=== PATIENT | male | born 2000 | race African-American/Black ===

== ENCOUNTER 2024-05-07 19:41 | Emergency (ER) | payer SELFPAY ==
--- OUTSIDE RECORDS SUMMARY | 2024-05-07 19:44 | XMS REPORT | Continuity of Care Document ---
Author Name Unknown Address [address] [facility] [place] [id number] [facility] thconnect Address [address] [facility] [place] [address] Care Team Providers Care Pv Installer Tech Name Role Phone NIKUNJ ARVIZU Attending Clinician Unavailab maricruz RAMIREZ Attending Clinician Unavailable LIAM SPENCE Attending Clinician Unavailable JEM CROFT Attending Clinician Unavailable SAMANTHA GIBBS Attending Clinician Unavailable GILBERTO MELARA Attending Clinician Unavailable JESSY CHACON Attending Clinician Unavailable NIDA SERNA Attending Clinician UnavailESTELA Leslie Attending Clinician Unavailable GERMAN BRIGHT Attending Clinician Unavailable MEME MONTEIRO Attending Clinician Unavailab JASMINE Joaquin Attending Clinician Unavailable IQRA MARTINES Attending Clinician Unav ailable ASHLEY Admitting Clinician Unavailable ESTELA LAM Admitting Clinician Unavailable IQRA MARTINES Admitting Clinician Unav ailable Encounters Start Date/Time End Date/Time Encounter Type Admission Type Attending Clinicians Care Facility Care Department Encounter ID Source 2023-10-07 10:40:00 2023-10-07 12:17:00 Emergency ER NIKUNJ ARVIZU [facility] [id number] [facility] 2021-11-03 02:04:00 2021-11-03 02:04:00 Outpatient WADE KATZ [facility] [id number] [facility] Program 2020-11-28 10:27:00 2020-11-28 11:35:00 Emergency ER LIAM SPENCE [facility] [id number] [facility] 2020-05-22 12:29:00 2020-05-22 14:19:00 Emergency ER JEM CROFT [facility] [id number] [facility] 2019-10-26 15:12:00 2019-10-26 16:43:00 Emergency ER SAMANTHA GIBBS [facility] [id number] [facility] 2019-03-07 13:48:00 2019-03-07 17:25:00 Emergency ER GILBERTO MELARA [facility] [id number] [facility] 2019-02-09 09:18:00 2019-02-09 11:25:00 Emergency ER OSWALDO JESSY [facility] [id number] [facility] 2019-02-08 14:42:00 2019-02-08 16:07:00 Emergency ER OSWALDO JESSY [facility] [id number] [facility] 2016-01-20 10:51:00 2016-01-20 10:51:00 Outpatient NIDA OCAMPO [facility] [id number] [facility] 2016-01-08 11:20:00 2016-01-08 11:20:00 Outpatient NIDA OCAMPO [facility] [id number] [facility] 2015-05-28 15:50:00 2015-05-30 16:54:00 Inpatient ER ESTELA LAM [facility] [id number] [facility] 2015-05-13 13:31:00 2015-05-13 15:30:00 Emergency ER GERMAN BRIGHT [facility] [id number] [facility] 2013-06-19 08:22:00 2013-06-19 09:25:00 Emergency ER SAMANTHA GIBBS [facility] [id number] [facility] 2012-11-24 00:47:00 2012-11-24 04:26:00 Emergency ER MEME MONTEIRO [facility] [id number] [facility] 2012-10-24 18:47:00 2012-10-24 20:49:00 Emergency ER GERMAN BRIGHT [facility] [id number] [facility] 2004-09-16 08:05:00 2004-09-16 10:00:00 Emergency ER KARYN MURRIETAIR [facility] [id number] [facility] 2000 02:17:00 2000 11:00:00 Inpatient NB IQRA ORTIZ [facility] [id number] [facility]
[2024-05-07 20:28] LABS: SARS-CoV-2 Antigen CONTROL BLUE LINE VIS/BG OK; SARS-CoV-2 Antigen Rapid Res Negative (Negative)
--- NOTE | 2024-05-07 20:59 | EDPHYS ---
Physician Documentation [facility] Name: Hans Cruz Age: 23 yrs Sex: Male : 2000 Arrival Date: 05/07/2024 Time: 19:41 Bed IW2 Private MD: ED Physician Efrain Rocha HPI: 05/07 19:51 This 23 yrs old Black Male presents to ER via Unassigned with complaints of Flu kb Symptoms. 19:51 Pt is a 23 year old male who presents for cough, congestion, bodyaches, chills, sore kb throat, diarrhea, and generalized malaise for 2 days. Denies nausea, vomiting, abd pain. . Historical: - Allergies: 19:53 No Known Allergies; cm10 - PMHx: 19:53 None; cm10 - PSHx: 19:53 None; cm10 - Immunization history:: Adult Immunizations up to date. - Infectious Disease History:: Denies. - Social history:: Smoking status: Patient reports the use of cigarette tobacco products, denies chronic smoking, but will smoke occasionally, Reported history of juuling and/or vaping. ROS: 19:53 Constitutional: As per HPI kb Exam: 19:53 Constitutional: This is a well developed, well nourished patient who is awake, alert, kb and in no acute distress. Head/Face: Normocephalic, atraumatic. ENT: Moist Mucous membranes Cardiovascular: Regular rate Respiratory: Respirations even and unlabored. No increased work of breathing. Talking in full sentences Abdomen/GI: Soft, non-tender. No distention Skin: Warm, dry with normal turgor. Normal color. MS/ Extremity: Pulses equal, no cyanosis. Neurovascular intact. Full, normal range of motion. Neuro: Awake and alert, GCS 15, oriented to person, place, time, and situation. Vital Signs: 19:52 BP 138 / 94; Pulse 81; Resp 15; Temp 98.2(TE); Pulse Ox 99% on R/A; Weight 72.57 kg; cm10 Height 5 ft. 11 in. ; Pain 7/10; 19:52 Body Mass Index 22.32 (72.57 kg, 180.34 cm) cm10 19:52 Pain Scale: Adult cm10 MDM: 19:48 Medical Screening Exam initiated kb 19:53 Data reviewed: vital signs, nurses notes. Historians other than the Patient: lauren Spouse/Significant Other: significant other. 20:57 Differential diagnosis: flu, covid, strep, uri. Counseling: I had a detailed discussion kb with the patient and/or guardian regarding the historical points, exam findings, and any diagnostic results supporting the discharge/admit diagnosis, lab results, the need for outpatient follow up, a family practitioner, to return to the emergency department if symptoms worsen or persist or if there are any questions or concerns that arise at home. 05/07 19:54 Order name: Flu; Complete Time: 20:43 kb 05/07 19:54 Order name: SARS-COV-2 Antigen Rapid; Complete Time: 20:28 kb 05/07 19:54 Order name: Strep 05/07 20:30 Order name: Throat Culture EDMS Administered Medications: No medications were administered Disposition Summary: 05/07/24 20:58 Discharge Ordered Notes: Location: Home kb Condition: Stable kb Diagnosis - Viral infection, unspecified kb Followup: kb - With: Emergency Department - When: As needed - Reason: Worsening of condition Followup: kb - With: Private Physician - When: 2 - 3 days - Reason: Recheck today's complaints, Continuance of care, Re-evaluation by your physician Discharge Instructions: - Discharge Summary Sheet kb - Viral Illness, Adult kb Forms: - Work release form kb - Medication Reconciliation Form kb - Antibiotic Education kb - Prescription Opioid Use kb - Patient Portal Instructions kb - Leadership Thank You Letter kb Addendum: 05/11/2024 10:07 Co-signature as Attending Physician, Efrain Rocha MD I reviewed the patient's care r n provided by the Advanced Practice Provider and agree with the diagnosis and treatment plan. Signatures: Dispatcher [employer] EDIL Lucia Astorga, PROGRAM MANAGEMENT ANALYST-C PROGRAM MANAGEMENT ANALYST-Ckb Efrain Rocha MD MD rn Martinez, Clarissa, RN RN cm10 Corrections: (The following items were deleted from the chart) 05/07 19:55 19:54 Influenza Screen (A \T\ B)+BA.LAB.BRZ ordered. EDIL EDMS 19:55 19:54 SARS-COV-2 Antigen Rapid+I.LAB.BRZ ordered. EDIL EDMS 19:55 19:54 Group A Streptococcus Rapid Sc+BA.LAB.BRZ ordered. EDMS EDMS
--- NOTE | 2024-05-07 20:59 | ER ---
Nurse's Notes [facility] Name: Hans Cruz Age: 23 yrs Sex: Male : 2000 Arrival Date: 05/07/2024 Time: 19:41 Bed IW2 Private MD: Diagnosis: Viral infection, unspecified Presentation: 05/07 19:52 Chief complaint: Patient states: Diarrhea, cough, sore that, body aches onset 2 days cm10 ago. Coronavirus screen: Client denies travel out of the [place] in the last 14 days. Ebola Screen: Patient denies travel to an Ebola-affected area in the 21 days before illness onset. Initial Sepsis Screen: Does the patient meet any 2 criteria? No. Patient's initial sepsis screen is negative. Does the patient have a suspected source of infection? No. Patient's initial sepsis screen is negative. Risk Assessment: Do you want to hurt yourself or someone else? Patient reports no desire to harm self or others. Onset of symptoms was May 07, 2024. 19:52 Method Of Arrival: Ambulatory cm10 19:52 Acuity: JENNIFER 4 cm10 Triage Assessment: 19:52 General: Appears in no apparent distress. comfortable, Behavior is calm, cooperative. cm10 Pain: Complains of pain in Generalized body aches. Neuro: No deficits noted. Level of Consciousness is awake, alert, obeys commands, Oriented to person, place, time, situation, Appropriate for age. 19:52 EENT: Reports pain when swallowing. cm10 19:52 Respiratory: No deficits noted. Airway is patent Respiratory effort is even, unlabored, cm10 Respiratory pattern is regular, symmetrical. Respiratory: Reports cough that is. Musculoskeletal: No deficits noted. Range of motion: intact in all extremities. Historical: - Allergies: 19:53 No Known Allergies; cm10 - PMHx: 19:53 None; cm10 - PSHx: 19:53 None; cm10 - Immunization history:: Adult Immunizations up to date. - Infectious Disease History:: Denies. - Social history:: Smoking status: Patient reports the use of cigarette tobacco products, denies chronic smoking, but will smoke occasionally, Reported history of juuling and/or vaping. Screenin:08 [facility] ED Fall Risk Assessment (Adult) History of falling in the last 3 months, cm10 including since admission No falls in past 3 months (0 pts) Confusion or Disorientation No (0 pts) Intoxicated or Sedated No (0 pts) Impaired Gait No (0 pts) Mobility Assist Device Used No (0 pt) Altered Elimination No (0 pt) Score/Fall Risk Level 0 - 2 = Low Risk Oriented to surroundings, Maintained a safe environment, Hourly rounding (assess needs \T\ fall precautionary measures) done. Abuse screen: Denies threats or abuse. Denies injuries from another. Nutritional screening: No deficits noted. Tuberculosis screening: No symptoms or risk factors identified. Vital Signs: 19:52 BP 138 / 94; Pulse 81; Resp 15; Temp 98.2(TE); Pulse Ox 99% on R/A; Weight 72.57 kg; cm10 Height 5 ft. 11 in. ; Pain 7/10; 19:52 Body Mass Index 22.32 (72.57 kg, 180.34 cm) cm10 19:52 Pain Scale: Adult cm10 ED Course: 19:45 Patient arrived in ED. gm2 19:48 [facility] Astorga [facility]-C [facility] kb 19:48 Efrain Rocha MD is Attending Physician. kb 19:53 Triage completed. cm10 19:54 Arm band placed on left wrist. Patient placed in waiting room. cm10 19:55 COVID swab sent to lab. Flu and/or RSV swab sent to lab. Strep swab sent to lab. cm10 19:57 Strep Sent. cm10 19:57 SARS-COV-2 Antigen Rapid Sent. cm10 19:57 Flu Sent. cm10 21:08 Patient has correct armband on for positive identification. Provided Education on: cm10 Follow-up. 21:09 No provider procedures requiring assistance completed. Patient did not have IV access cm10 during this emergency room visit. Administered Medications: No medications were administered Medication: 21:08 VIS not applicable for this client. cm10 Outcome: 20:58 Discharge ordered by . kb 21:08 Discharged to home ambulatory, cm10 21:08 Condition: good 21:08 Discharge instructions given to patient, Instructed on discharge instructions, follow up and referral plans. Demonstrated understanding of instructions, follow-up care, 21:09 Patient left the ED. cm10 Signatures: Lucia Astorga FNP-C FNP-Ckb Martinez, Clarissa, RN RN cm10 Isabell Galvez gm2
[2024-05-08 17:08] VITALS: BP 138/94; TEMP 98.2; O2SAT 99
== END 2024-05-07 21:09 | disposition home or self-care (01) ==
LOC: ER 19:41
DX: B34.9 Viral infection, unspecified (principal); Z11.52 Encounter for screening for COVID-19
CPT/HCPCS: 36415; 87070; 87081; 87804; 87811; 99283